=== PATIENT | male | born 1955 | race Native Hawaiian/Other Pacific Islander ===

== ENCOUNTER 2017-12-28 22:52 | Emergency (ER) | payer MEDICAID ==
[2017-12-28 23:10] VITALS: BP 150/88; PULSE 100; RESP 18; TEMP 97.9; O2SAT 96
[2017-12-29] MEDS ORDERED: Tetanus/Diphtheria Toxoids 0.5 ml Syringe IM ONE ×2 (00:03→00:14)
--- NOTE | 2017-12-29 00:20 | C.PDOC ---
History Of Present Illness Pt presents to ER with c/o of rat bite/ scratch to scalp and requesting rabies and tetanus vaccine. Pt states his sleeping area is rat infested and he sleeps on the floor. Denies headache, dizziness, fever Time Seen by Provider: 12/28/17 23:39 Chief Complaint (Nursing): Headache History Per: Patient History/Exam Limitations: no limitations Past Medical History Vital Signs: Last Vital Signs Temp 97.9 F 12/28/17 23:05 Pulse 100 H 12/28/17 23:05 Resp 18 12/28/17 23:05 BP 150/88 12/28/17 23:05 Pulse Ox 96 12/28/17 23:05 - Medical History PMH: Arthritis, HTN, Hypercholesterolemia Denies: Chronic Kidney Disease Surgical History: Coronary Stent - [facility] Procedures INJECT/INFUSE THROMBOLYTIC AGENT (03/14/14) INSERTION OF ONE VASCULAR STENT (03/14/14) INSERTION OF TEMPORARY TRANS PACEMAKER SYSTEM (03/14/14) INSRT OF DRUG-ELUTING CORON ARTERY STENTS(S) (03/14/14) LEFT HEART CARDIAC CATH (03/14/14) LT HEART ANGIOCARDIOGRAM (03/14/14) PERCUTANEOUS TRANSLUMINAL CORONARY ANGIOPLASTY [PTCA] (03/14/14) PROCEDURE ON SINGLE VESSEL (03/14/14) Family History: Denies: Stroke, [place], CAD, Diabetes, Hypertension - Social History Hx Tobacco Use: No Hx Alcohol Use: No Hx Substance Use: No - Immunization History Hx Tetanus Toxoid Vaccination: No Hx Influenza Vaccination: No Hx Pneumococcal Vaccination: No Review Of Systems Constitutional: Negative for: Fever, Chills Skin: Positive for: Other (abrasions) Neurological: Negative for: Headache, Dizziness Physical Exam - Physical Exam Appears: Well, Non-toxic, No Acute Distress Skin: Normal Color Head: Abrasion (superficial excoriations to frontal scalp, no erythema, swelling or purulent d/c) Eye(s): bilateral: Normal Inspection, PERRL Neck: Normal, Supple Neurological/Psych: Oriented x3, Normal Speech, Normal Cognition Gait: Steady ED Course And Treatment O2 Sat by Pulse Oximetry: 96 Pulse Ox Interpretation: Normal Progress Note: tetanus ordered. Pt informed that rabies are not recoomended for rat bites/ scratches and advised PMD follow up and return precautions explained and understood by pt Disposition Counseled Patient/Family Regarding: Diagnosis, Need For Followup, Rx Given - Disposition Referrals: Flex Mehta MD [Staff Provider] - Disposition: HOME/ ROUTINE Disposition Time: 00:21 Condition: STABLE Additional Instructions: Please follow up with PMD Return andrew ER if fever or moderate pain, headache or worse Forms: [facility] (Kyrgyz), General Discharge Instructions - Clinical Impression Clinical Impression: Rat bite, Excoriation of scalp
== END 2017-12-29 00:34 | disposition home or self-care (01) ==
LOC: C.ER 22:52 → SUPCPDRO 22:52 → C.ER 12-29 00:34
DX: S00.01XA Abrasion of scalp, initial encounter (principal); W53.11XA Bitten by rat, initial encounter

== ENCOUNTER 2018-05-18 20:42 | Inpatient (IN) | payer MEDICAID ==
[2018-05-18 20:51] VITALS: RESP 20; TEMP 98.3
--- NOTE | 2018-05-18 21:04 | C.PDOC ---
History Of Present Illness 62 year old male presents to the ED c/o intermittent chest pain for the past week. Patient went to see his PMD today who sent him to the ED for evaluation. Patient states his chest pain is dull aching, 4/10 discomfort. Patient was given aspirin in the field. Patient denies fever, chills, SOB, weakness, numbness. Time Seen by Provider: 05/18/18 21:03 Chief Complaint (Nursing): Chest Pain History Per: Patient History/Exam Limitations: no limitations Onset/Duration Of Symptoms: Intermittent Episodes Current Symptoms Are (Timing): Still Present Severity: Mild Pain Scale Rating Of: 4 Quality: Dull, Aching Modifying Factors: None Exacerbating Factors: None Alleviating Factors: None Recent travel outside of the [place]: No Additional History Per: Patient Past Medical History Reviewed: Historical Data, Nursing Documentation, Vital Signs Vital Signs: Last Vital Signs Temp 98.3 F 05/18/18 20:45 Pulse 80 05/18/18 20:45 Resp 20 05/18/18 20:45 BP 133/91 H 05/18/18 20:45 Pulse Ox 95 05/18/18 22:41 - Medical History PMH: Arthritis, HTN, Hypercholesterolemia Denies: Chronic Kidney Disease Surgical History: Coronary Stent (1 stent) - [facility] Procedures INJECT/INFUSE THROMBOLYTIC AGENT (03/14/14) INSERTION OF ONE VASCULAR STENT (03/14/14) INSERTION OF TEMPORARY TRANS PACEMAKER SYSTEM (03/14/14) INSRT OF DRUG-ELUTING CORON ARTERY STENTS(S) (03/14/14) LEFT HEART CARDIAC CATH (03/14/14) LT HEART ANGIOCARDIOGRAM (03/14/14) PERCUTANEOUS TRANSLUMINAL CORONARY ANGIOPLASTY [PTCA] (03/14/14) PROCEDURE ON SINGLE VESSEL (03/14/14) Family History: States: Unknown Family Hx Denies: Stroke, [place], CAD, Diabetes, Hypertension - Social History Hx Tobacco Use: No Hx Alcohol Use: No Hx Substance Use: No - Immunization History Hx Tetanus Toxoid Vaccination: Yes Hx Influenza Vaccination: No Hx Pneumococcal Vaccination: No Review Of Systems Constitutional: Negative for: Fever, Chills Eyes: Negative for: Vision Change Cardiovascular: Positive for: Chest Pain. Negative for: Palpitations Respiratory: Negative for: Shortness of Breath Gastrointestinal: Negative for: Nausea, Vomiting, Abdominal Pain Musculoskeletal: Negative for: Back Pain Skin: Negative for: Rash Neurological: Negative for: Weakness, Numbness, Headache, Dizziness Psych: Negative for: Anxiety Physical Exam - Physical Exam Appears: Non-toxic, No Acute Distress Skin: Warm, Dry Head: Normacephalic Eye(s): bilateral: Normal Inspection Oral Mucosa: Moist Neck: Supple Chest: Symmetrical Cardiovascular: Rhythm Regular Respiratory: No Rales, No Rhonchi, No Wheezing Gastrointestinal/Abdominal: Soft, No Tenderness, No Guarding, No Rebound Back: Normal Inspection Extremity: No Tenderness, No Swelling Extremity: Bilateral: Atraumatic, Normal Color And Temperature, Normal ROM Pulses: Left Dorsalis Pedis: Normal, Right Dorsalis Pedis: Normal Neurological/Psych: Oriented x3, Normal Speech Gait: Steady ED Course And Treatment - Laboratory Results Result Diagrams: 05/18/18 21:17 18 21:17 ECG: Interpreted By Me, Viewed By Me ECG Rhythm: Sinus Rhythm (94), Nonspecific Changes O2 Sat by Pulse Oximetry: 95 (ON RA) Pulse Ox Interpretation: Normal - Radiology CXR: Interpreted by Me, Viewed By Me CXR Interpretation: No: Infiltrates, Fracture, Pnemothorax Progress Note: Plan: - EKG. - CXR. - Labs. - UA Disposition Discussed With : Owen Rojas Comment: accepted the pt on his service and took over the care at 11:16 PM Doctor Will See Patient In The: Hospital Counseled Patient/Family Regarding: Studies Performed, Diagnosis - Disposition Disposition: HOSPITALIZED Disposition Time: 21:04 Condition: FAIR Forms: [facility] (French) - POA Present On Arrival: Poor Glycemic Control - Clinical Impression Clinical Impression: Chest pain - Scribe Statement The provider has reviewed the documentation as recorded by the Scribe Daniel Peters All medical record entries made by the Scribe were at my direction and personally dictated by me. I have reviewed the chart and agree that the record accurately reflects my personal performance of the history, physical exam, medical decision making, and the department course for this patient. I have also personally directed, reviewed, and agree with the discharge instructions and disposition. Decision To Admit - Pt Status Changed To: Hospital Disposition Of: Inpatient - Admit Certification Admit to Inpatient:: After my assessment, the patient will require hospitalization for at least two midnights. This is because of the severity of symptoms shown, intensity of services needed, and/or the medical risk in this patient being treated as an outpatient. - InPatient: Physician Admission Certification: I certify that this patient requires 2 or more midnights of care for the following reason:: After my assessment, the patient will require hospitalization for at least two midnights. This is because of the severity of symptoms shown, intensity of services needed, and/or the medical risk in this patient being treated as an outpatient. - . Bed Request Type: Telemetry Admitting Physician: Owen Rojas Patient Diagnosis: Chest pain
[2018-05-18 21:27] LABS: BASO # 0.1 K/uL (0.0-0.2); BASO % 1.4 % (0.0-2.0); EOS % 0.4 % (0.0-4.0); HEMOGLOBIN 15.2 g/dL (12.0-18.0); LYMPH # 1.7 K/uL (1.0-4.3); LYMPH % 23.1 % (20.0-40.0); MEAN CORPUSCULAR HEMOGLOBIN 29.4 pg (27.0-31.0); MEAN CORPUSCULAR HGB CONC 34.6 g/dL (33.0-37.0); MEAN PLATELET VOLUME 9.3 fL (7.2-11.7); MONO # 0.4 K/uL (0.0-0.8); MONO % 5.6 % (0.0-10.0); NEUT # 5.1 K/uL (1.8-7.0); NEUT % 69.5 % (50.0-75.0); NRBC % 0.1 % (0.0-2.0); RBC 5.18 Mil/uL (4.40-5.90); RED CELL DISTRIBUTION WIDTH 13.6 % (11.5-14.5); WHITE BLOOD COUNT 7.3 K/uL (4.8-10.8)
[2018-05-18 21:39] LABS: ALB/GLOB RATIO 1.7 (1.0-2.1); ALBUMIN 4.5 g/dL (3.5-5.0); ALT/SGPT 39 U/L (21-72); AST/SGOT 26 U/L (17-59); BLOOD UREA NITROGEN 12 mg/dL (9-20); CALCIUM 9.6 mg/dl (8.6-10.4); GFR AFRICAN-AMERICAN > 60; GFR NON-AFRICAN AMERICAN > 60
[2018-05-18 21:49] LABS: B-TYPE NATRIURETIC PEPTIDE 44.4 pg/mL (0-900)
[2018-05-19 00:02] VITALS: BP 141/103; PULSE 79; O2SAT 97
--- NOTE | 2018-05-19 08:15 | RAD ---
Date of service: 05/18/2018 PROCEDURE: CHEST RADIOGRAPH, 1 VIEW HISTORY: chest pain COMPARISON: 03/14/2014 FINDINGS: LUNGS: No consolidation PLEURA: No pneumothorax or pleural fluid seen. CARDIOVASCULAR: Mild cardiomegaly. Unfolded ectatic partly calcified thoracic aorta current study slightly more rotated towards the right ectatic prominent ascending aorta slightly more notable on this exam possibly in part due technique. Correlate clinically OSSEOUS STRUCTURES: Possible mild pulmonary venous congestion not significantly changed since prior exam. VISUALIZED UPPER ABDOMEN: Normal. OTHER FINDINGS: None. IMPRESSION: Cardiomegaly and tortuous unfolded thoracic aorta-as referenced above. Correlate clinically.
--- NOTE | 2018-05-19 10:58 | CARD ---
APPROVED REPORT Date of service: 05/18/2018 EKG Measurement Heart [id number] <Conclusion> Normal sinus rhythm Possible Left atrial enlargement Inferior infarct, age undetermined Abnormal ECG
== END 2018-05-19 01:00 | disposition left against medical advice (07) | DRG 143 ==
LOC: C.ER 20:42 → C.9E 23:15 → C.6T 23:49
PROVIDERS: ADMIT Internal Medicine Pulmonary Disease; ATTEND Internal Medicine Pulmonary Disease
DX: R07.9 Chest pain, unspecified (principal); I10 Essential (primary) hypertension; E78.00 Pure hypercholesterolemia, unspecified; M19.90 Unspecified osteoarthritis, unspecified site; Z95.5 Presence of coronary angioplasty implant and graft